=== PATIENT | female | born 1990 | race Two or more races ===

== ENCOUNTER → 2016-09-08 | Outpatient (CLI) | payer MEDICAID ==
[~2016-09-08] VITALS: Ht 144.8 cm; Wt 63.5 kg
== END | disposition home or self-care (01) ==
LOC: Rad HDHVI 08:04
PROVIDERS: ATTEND Internal Medicine Cardiovascular Disease
DX: I05.0 Rheumatic mitral stenosis (principal); I35.0 Nonrheumatic aortic (valve) stenosis; R94.31 Abnormal electrocardiogram [ECG] [EKG]; R55 Syncope and collapse; R42 Dizziness and giddiness
CPT/HCPCS: 93017; 93306